=== PATIENT | male | born 1955 | race Caucasian/White ===

== ENCOUNTER 2020-10-08 14:05 | Inpatient (IN) ==
[2020-10-08 17:02] LABS: BASOPHILS # (AUTO) 0.1 X10^3/uL (0.0-0.1); BASOPHILS % (AUTO) 0.8 % (0.2-1.0); EOSINOPHILS % (AUTO) 9.1 % (0.9-2.9); HEMATOCRIT 27.2 % (42.0-54.0); HEMOGLOBIN 8.8 g/dL (13.5-18.0); LYMPHOCYTES # (AUTO) 1.4 X10^3/uL (1.3-2.9); LYMPHOCYTES % (AUTO) 13.1 % (21.0-51.0); MEAN CORPUSCULAR HGB CONC 32.4 g/dL (33.0-35.0); MEAN CORPUSCULAR VOLUME 77.1 fL (80.0-100.0); MEAN PLATELET VOLUME 7.1 fL (7.4-11.0); MONOCYTES # (AUTO) 0.8 x10^3/uL (0.3-0.8); MONOCYTES % (AUTO) 7.8 % (0.0-13.0); NEUTROPHILS # (AUTO) 7.4 x10^3/uL (2.2-4.8); NEUTROPHILS % (AUTO) 69.2 % (42.0-75.0); PLATELET COUNT 451 X10^3/uL (150.0-450.0); RED BLOOD COUNT 3.53 X10^6/uL (4.7-6.0); WHITE BLOOD COUNT 10.7 X10^3/uL (3.6-10.0)
[2020-10-08 17:14] LABS: ALBUMIN 2.5 g/dL (3.4-5.0); CALCIUM 8.7 mg/dL (8.5-10.1); CARBON DIOXIDE 28.8 mmol/L (21-32); COR CA(FOR HYPOALB) 9.9 mg/dL (8.5-10.1); CREATININE 2.31 mg/dL (0.70-1.30); TOTAL PROTEIN 8.2 g/dL (6.4-8.2)
[2020-10-08 17:26] VITALS: BMI 27.4
[2020-10-08] MEDS ORDERED: VENTOLIN or PROAIR HFA IN PRN (19:36)
[2020-10-08] MEDS ORDERED: PHARMACY CONSULT - VANCOMYCIN XX SCH (20:00)
[2020-10-08] MEDS ORDERED: ACCUNEB 1.25 MG NEBULE NEB PRN (20:15)
[2020-10-08] MEDS: COLACE CAP 100 MG PO SCH (20:29)
[2020-10-08] MEDS: ZOSYN VIAL 2.25 GRAMS 2.25 G in NS 100 ML IV + SPIKE MINIBAG* 100 ML IV SCH ×2 (20:29→21:06)
[2020-10-08] MEDS: HumuLIN R SC PRN (20:29)
[2020-10-08] MEDS: ULTRAM PO PRN (20:30)
[2020-10-08] MEDS: COREG TAB 12.5 MG PO SCH (20:30)
[2020-10-08] MEDS: CRESTOR TAB 10 MG PO SCH (20:30)
[2020-10-08] MEDS ORDERED: VANCOMYCIN HCL 750 MG VIAL 750 MG in D5W 250 ML IV 250 ML IV SCH (21:00)
--- NOTE | 2020-10-08 21:34 | DR.H&P ---
H&P History & Physical for Day of: H&P Date: 10/08/20 Chief Complaint Chief Complaint: 65-year-old male with history of diabetes, hypertension and congestive heart failure who was seen in [place] for a wound to the lateral aspect of the right metatarsal head. Has significant history of rest pain and short distance claudication and ultrasound duplex studies showed significant bilateral superficial femoral artery disease. He was discharged home to come here for vascular interventional care to assure healing of the wound. Plain films reported to be negative. Question of possible osteomyelitis of the metatarsal head of the right 5th toe. Past history of tobacco abuse and stopped smoking 6 years ago. Allergies Allergies Allergy/AdvReac Type Severity Reaction Status Date / Time codeine Allergy Verified 10/08/20 19:47 History of Present Illness History of Present Illness: See above Past Medical History Past Medical History: CHF and Diabetes Past Surgical History Surgical History: Other ( Hx of left inguinal hernia repair. ) Family History Family Medical History: Diabetes Mellitus, Cancer, DE and Hypertension Social History Does patient currently use any type of tobacco product: No Have you used tobacco products in the last 12 months: No Type of Tobacco Use: Cigarettes How many years tobacco product used: 30 Does any household member use tobacco: No Alcohol Use: None Drug Use: None Medications Home Medications: codeine Allergy (Verified 10/08/20 19:47) CONTINUE taking the following medications albuterol sulfate 2 puff INHALATION Q4H PRN 10/08/20 [History] aspirin 81 mg PO DAILY 10/08/20 [History] carvedilol 12.5 mg PO BID 10/08/20 [History] docusate sodium 100 mg PO DAILY 10/08/20 [History] ezetimibe 10 mg PO DAILY 10/08/20 [History] furosemide 40 mg PO DAILY 10/08/20 [History] rosuvastatin 20 mg PO QHS 10/08/20 [History] tramadol 50 mg PO Q6H PRN 10/08/20 [History] Labs Result Diagrams: 10/08/20 16:40 10/08/20 16:40 Labs: Laboratory WBC 10.7 X10^3/uL (3.6-10.0) H 10/08/20 16:40 RBC 3.53 X10^6/uL (4.7-6.0) L 10/08/20 16:40 Hgb 8.8 g/dL (13.5-18.0) L 10/08/20 16:40 Hct 27.2 % (42.0-54.0) L 10/08/20 16:40 MCV 77.1 fL (80.0-100.0) L 10/08/20 16:40 MCH 25.0 pg (27.0-34.0) L 10/08/20 16:40 MCHC 32.4 g/dL (33.0-35.0) L 10/08/20 16:40 RDW 16.0 % (11.6-16.5) 10/08/20 16:40 Plt Count 451 X10^3/uL (150.0-450.0) H 10/08/20 16:40 MPV 7.1 fL (7.4-11.0) L 10/08/20 16:40 Neut % (Auto) 69.2 % (42.0-75.0) 10/08/20 16:40 Lymph % (Auto) 13.1 % (21.0-51.0) L 10/08/20 16:40 [place] % (Auto) 7.8 % (0.0-13.0) 10/08/20 16:40 Eos % (Auto) 9.1 % (0.9-2.9) H 10/08/20 16:40 Baso % (Auto) 0.8 % (0.2-1.0) 10/08/20 16:40 Neut # (Auto) 7.4 x10^3/uL (2.2-4.8) H 10/08/20 16:40 Lymph # (Auto) 1.4 X10^3/uL (1.3-2.9) 10/08/20 16:40 [place] # (Auto) 0.8 x10^3/uL (0.3-0.8) 10/08/20 16:40 Eos # (Auto) 1.0 x10^3/uL (0.0-0.2) H 10/08/20 16:40 Baso # (Auto) 0.1 X10^3/uL (0.0-0.1) 10/08/20 16:40 Absolute Nucleated RBC 0.0 /100WBC 10/08/20 16:40 Sodium 141 mmol/L (136-145) 10/08/20 16:40 Corrected Sodium 142 mmol/L (136-145) 10/08/20 16:40 Potassium 3.7 mmol/L (3.5-5.1) 10/08/20 16:40 Chloride 104 mmol/L (98-107) 10/08/20 16:40 Carbon Dioxide 28.8 mmol/L (21-32) 10/08/20 16:40 BUN 38 mg/dL (7-18) H 10/08/20 16:40 Creatinine 2.31 mg/dL (0.70-1.30) H 10/08/20 16:40 Est GFR (MDRD) Af Amer 36 (>60) L 10/08/20 16:40 Est GFR (MDRD) Non-Af 30 (>60) L 10/08/20 16:40 Glucose 126 mg/dL (65-99) H 10/08/20 16:40 POC Glucose (mg/dL) 222 mg/dL (65-99) H 10/08/20 20:05 Calcium 8.7 mg/dL (8.5-10.1) 10/08/20 16:40 Corrected Calcium 9.9 mg/dL (8.5-10.1) 10/08/20 16:40 Total Bilirubin 0.30 mg/dL (0.2-1.0) 10/08/20 16:40 AST 56 Units/L (15-37) H 10/08/20 16:40 ALT 55 Units/L (12-78) 10/08/20 16:40 Alkaline Phosphatase 101 Units/L (46-116) 10/08/20 16:40 Total Protein 8.2 g/dL (6.4-8.2) 10/08/20 16:40 Albumin 2.5 g/dL (3.4-5.0) L 10/08/20 16:40 Globulin 5.7 g/dL (2.5-4.5) H 10/08/20 16:40 Albumin/Globulin Ratio 0.4 Ratio (1.1-2.1) L 10/08/20 16:40 SARS-CoV-2 (PCR) Negative (NEGATIVE) 10/08/20 14:36 Influenza Type A (PCR) Negative (NEGATIVE) 10/08/20 14:36 Influenza Type B (PCR) Negative (NEGATIVE) 10/08/20 14:36 RSV (PCR) Negative (NEGATIVE) 10/08/20 14:36 Review of Systems Constitutional: denies No Symptoms Reported, See HPI, Fever, Chills, Sweats, Weakness, Malaise and Other Eyes: No Symptoms Reported ENT: No Symptoms Reported Respiratory: No Symptoms Reported Cardiovascular: No Symptoms Reported Gastrointestinal: No Symptoms Reported Genitourinary: No Symptoms Reported Musculoskeletal: Other (open wound right lateral 5th metatarsal head s/p incision and drainage ) Neurological: No Symptoms Reported Physical Exam Vital Signs: Temperature 97.5 F Pulse Rate [Right Radial] 74 Respiratory Rate 18 Blood Pressure [Right Arm] 171/70 O2 Sat by Pulse Oximetry 97 Oriented: Time, Person and Place Eyes: Normal Ear: Normal Nose: Normal Throat: Normal Respiratory: Clear Throughout Cardiovascular: Normal and Other (Weakly palpable right femoral pulse. Left femoral pulse normal character. No distal pulses palpable either ankle.) : Normal Auscultation: Bowel Sounds: Normal Palpation: Normal Skin: Normal (exception is the open wound of the right lateral foot) Musculoskeletal: Normal Psychiatric: Normal Mood Description: Calm and Appropriate Assessment/Plan (1) Diabetes 1.5, managed as type 2: Narrative Support Text: Sliding scale insulin Status: Acute (2) Congestive heart failure: Narrative Support Text: continue home medications Status: Acute (3) Hypertension: Narrative Support Text: continue home medications Status: Acute (4) Rest pain of both lower extremities due to atherosclerosis: Narrative Support Text: PLan CT aortogram and b/l runoff. Will probably need peripheral intervention of the right leg to enable healing of the right foot wound but will probably also need intervention of the left leg to resolve rest pain Status: Acute (5) Abscess of right foot: Narrative Support Text: Continue IV antibiotics and wound care right foot Status: Acute
[2020-10-08] MEDS: VANCOMYCIN IV *PREMIX 750 mg/150 ML BAG 750 MG/150 ML PIGGYBACK IV SCH (22:44)
[2020-10-09] MEDS: ZOSYN VIAL 2.25 GRAMS 2.25 G in NS 100 ML IV + SPIKE MINIBAG* 100 ML IV SCH ×3 (05:26→21:40)
[2020-10-09] MEDS: COREG TAB 12.5 MG PO SCH ×2 (09:18→20:18)
[2020-10-09] MEDS: LOVENOX INJ 40 MG SYR SC SCH (09:18)
[2020-10-09] MEDS: ASPIRIN 81 MG CHEWTAB PO SCH (09:18)
[2020-10-09] MEDS: ZETIA TAB 10 MG PO SCH (09:18)
[2020-10-09] MEDS: ULTRAM PO PRN ×2 (09:27→17:39)
[2020-10-09] MEDS: HumuLIN R SC PRN (11:19)
--- NOTE | 2020-10-09 17:44 | NOTE.SOAP ---
Soap Note Note for Day of Date of Exam: 10/09/20 Subjective Data Subjective Data: No change Objective Data Temperature: 97.6 F Pulse Rate: 78 Respiratory Rate: 18 Blood Pressure: 145/66 O2 Sat by Pulse Oximetry: 96 Objective Data: no change, wound right lateral foot. Assessment Assessment: critical ischemia right leg with poorly healing wound. Plan Plan: Creatinine = 2.3. CT angiogram not done for the elevated creatinine. Will do on table arteriogram to try and limit dye load.
[2020-10-09] MEDS: VANCOMYCIN IV *PREMIX 750 mg/150 ML BAG 750 MG/150 ML PIGGYBACK IV SCH (20:17)
[2020-10-09] MEDS: COLACE CAP 100 MG PO SCH (20:18)
[2020-10-09] MEDS: CRESTOR TAB 10 MG PO SCH (20:20)
[2020-10-10] MEDS: ZOSYN VIAL 2.25 GRAMS 2.25 G in NS 100 ML IV + SPIKE MINIBAG* 100 ML IV SCH ×3 (05:39→22:13)
[2020-10-10] MEDS ORDERED: HEPARIN SODIUM IN D5W 75,000 UNITS/1,500 ML BAG ONE (06:58)
[2020-10-10] MEDS ORDERED: MARCAINE or SENSORCAINE 0.25% WITH EPI IJ ONE (06:58)
[2020-10-10] MEDS ORDERED: HEPARIN SODIUM INJ 5000 UNITS ONE (06:58)
[2020-10-10] MEDS ORDERED: NS 1000 ML 1,000 ML ONE (07:21)
[2020-10-10] MEDS ORDERED: FENTANYL VIAL INJ 100 mcg ONE (07:40)
[2020-10-10 07:48] LABS: ALANINE AMINOTRANSFERASE 42 Units/L (12-78); ALBUMIN 2.3 g/dL (3.4-5.0); ALKALINE PHOSPHATASE 82 Units/L (46-116); ASPARTATE AMINO TRANSFERASE 49 Units/L (15-37); BLOOD UREA NITROGEN 35 mg/dL (7-18); CALCIUM 8.9 mg/dL (8.5-10.1); CARBON DIOXIDE 27.1 mmol/L (21-32); CHLORIDE 107 mmol/L (98-107); COR CA(FOR HYPOALB) 10.3 mg/dL (8.5-10.1); SODIUM 142 mmol/L (136-145); TOTAL PROTEIN 7.4 g/dL (6.4-8.2); eGFR NON BLACK RACES 34 (>60)
[2020-10-10] MEDS ORDERED: DIPRIVAN VIAL ONE (07:50)
[2020-10-10] MEDS ORDERED: VERSED ONE (07:50)
[2020-10-10] MEDS ORDERED: EPHEDRINE SULFATE INJ ONE (07:50)
[2020-10-10] MEDS ORDERED: HEPARIN SODIUM IN D5W 25,000 UNITS/500 ML BAG ONE (09:45)
--- NOTE | 2020-10-10 11:01 | OR.IMMED ---
IMMEDIATE POST-OP NOTE Immediate Post-Op Note Pre-Op Diagnosis: critical limb ischemia right leg with open non-healing wound right foot Post-Op Diagnosis: same, severe stenosis both external iliac arteries left > right Procedure: Diagnostic aortogram, diagnostic arteriogram right lower extremity, bilateral external iliac stenting Description of Procedure: see operative Surgeon/Scrap Separator: Jadiel Findings: Very hard femoral and iliac vessels. My original plan was to shoot arteriogram down the right side and intervene of the right superficial from artery but he had significant disease of both extra iliac arteries. I ended up performing stenting of both external iliac arteries. Arteriogram of the right lower extremity shows small area of severe stenosis of the right superficial femoral artery with diffuse disease throughout this artery with one vessel runoff via the anterior tibial artery. Also with significant plaque of distal aorta. Specimens Removed: none Estimated Blood Loss: < 100 cc Drains: NONE Complications: none Progress Notes: Back to floor, continue IV antibiotics and dressing changes right foot. Condition: Stable Post Hospital Plans and Medications: see above . Will assess with ABIs and he will probably need B/Ll distal interventions in near future Final Diagnosis: Critical ischemia right leg , both legs
[2020-10-10] MEDS: NS 1000 ML 1,000 ML IV SCH ×3 (13:25→21:40)
[2020-10-10] MEDS: COREG TAB 12.5 MG PO SCH ×2 (14:36→20:47)
[2020-10-10] MEDS: LOVENOX INJ 40 MG SYR SC SCH (14:36)
[2020-10-10] MEDS: ASPIRIN 81 MG CHEWTAB PO SCH (14:36)
[2020-10-10] MEDS: ZETIA TAB 10 MG PO SCH (14:37)
[2020-10-10] MEDS: ULTRAM PO PRN ×2 (14:37→20:45)
--- NOTE | 2020-10-10 20:42 | NOTE.SOAP ---
Soap Note Note for Day of Date of Exam: 10/10/20 Subjective Data Subjective Data: Mr. Sterling is a 65 year old male who s/p vascular surgery today with Dr. Duvall. He is also s/p right partial 5th ray resection, DOS was 10/04. Patient recently admitted to [facility] for a right foot infection. The facility did not have a vascular doctor so he was sent here. Patient is doing well. He states he is a little tired. He denies any pain to the right foot. He denies any f/c/n/v/sob/calf pain. Objective Data Objective Data: * Right foot feels warm to touch. DP and PT pulses are not palpable. Skin is atrophic and xerotic. The lateral foot wound is with healthy skin edges. The wound base is Fibrotic. The 5th metatarsal bone is exposed. No purulence. No erythema. No edema noted. The fifth digit is viable. No duskiness noted. Assessment Assessment: Mr. Sterling is a 65 year old male with PAD, CKD, CHF and DM type 2. He had a revascularization procedure today. He has an open wound to the right lateral foot. No sign of infection but the wound base is fibrotic. The wound culture from [facility] grew MRSA and Klebsiella. The pathology report came back with OM of the metatarsal head. The margin that was resected is negative of OM. He is currently with VSS, NAD, and no leukocytosis. I discussed the case in length with Dr. Duvall. He plans to take him back to the OR for another procedure in the next week. Plan Plan: The right foot was dressed with 1/4 in iodoform. Wound vac to the right foot. To be changed M/W/F. He is to follow up with me next week. Patient will require another procedure for wound closure with possible rotation flap. Tentative plan for additional vascular procedure with delayed primary closure with possible flap on the 24 of October. Continue abx. I think he would benefit from an outpatient course of antibiotics. I defer WB to Dr. Duvall but from my stand point he can be WB with heel touch in a post op shoe. But because he is s/p vascular procedure I defer to Dr. Duvall. PT and OT evaluations prior to d/c. I am ok for discharge but I would like the patient to follow up at [facility] in [place] with either myself or Dr. Ha. Please do not hesitate to contact me with questions or concerns. Forest Currie [phone]
[2020-10-10] MEDS: COLACE CAP 100 MG PO SCH (20:47)
[2020-10-10] MEDS: CRESTOR TAB 10 MG PO SCH (20:47)
[2020-10-10] MEDS: VANCOMYCIN IV *PREMIX 750 mg/150 ML BAG 750 MG/150 ML PIGGYBACK IV SCH (20:47)
[2020-10-11] MEDS: ULTRAM PO PRN ×2 (02:59→09:00)
[2020-10-11] MEDS: NS 1000 ML 1,000 ML IV SCH (03:07)
[2020-10-11] MEDS: ZOSYN VIAL 2.25 GRAMS 2.25 G in NS 100 ML IV + SPIKE MINIBAG* 100 ML IV SCH (05:12)
[2020-10-11 06:40] LABS: ALBUMIN 1.9 g/dL (3.4-5.0); CALCIUM 7.9 mg/dL (8.5-10.1); CARBON DIOXIDE 20.6 mmol/L (21-32); COR CA(FOR HYPOALB) 9.6 mg/dL (8.5-10.1); CREATININE 2.1 mg/dL (0.70-1.30)
--- NOTE | 2020-10-11 08:19 | PCM.DCPLAN ---
DISCHARGE SUMMARY Admission Date Date of Admission: 10/08/20 Discharge Date Discharge Date: 10/11/20 Admission Diagnoses (1) Diabetes 1.5, managed as type 2: Status: Acute (2) Congestive heart failure: Status: Acute (3) Hypertension: Status: Acute (4) Rest pain of both lower extremities due to atherosclerosis: Status: Acute (5) Abscess of right foot: Status: Acute (6) Critical lower limb ischemia: Status: Acute Discharge Diagnoses Discharge Diagnosis: same Discharge Medications Discharge Medications: Home Medication List albuterol sulfate 2 puff INHALATION Q4H PRN 10/08/20 [History] aspirin 81 mg PO DAILY 10/08/20 [History] carvedilol 12.5 mg PO BID 10/08/20 [History] docusate sodium 100 mg PO DAILY 10/08/20 [History] ezetimibe 10 mg PO DAILY 10/08/20 [History] furosemide 40 mg PO DAILY 10/08/20 [History] rosuvastatin 20 mg PO QHS 10/08/20 [History] tramadol 50 mg PO Q6H PRN 10/08/20 [History] doxycycline monohydrate 100 mg PO BID #30 cap 10/11/20 [Rx] oxycodone-acetaminophen [Percocet] 1 tab PO Q6H PRN #30 tab MDD 6 10/11/20 [Rx] Prescriptions: doxycycline monohydrate Ashvin Duvall oxycodone-acetaminophen [Percocet] Ashvin Duvall Hospital Course Vital Signs: Temperature 97.6 F Pulse Rate [Right Radial] 69 Pulse Rate 84 Respiratory Rate 17 Blood Pressure [Right Arm] 134/61 Blood Pressure 165/79 O2 Sat by Pulse Oximetry 96 Latest Lab Results: Laboratory Last Values WBC 10.7 X10^3/uL (3.6-10.0) H 10/08/20 16:40 RBC 3.53 X10^6/uL (4.7-6.0) L 10/08/20 16:40 Hgb 8.8 g/dL (13.5-18.0) L 10/08/20 16:40 Hct 27.2 % (42.0-54.0) L 10/08/20 16:40 MCV 77.1 fL (80.0-100.0) L 10/08/20 16:40 MCH 25.0 pg (27.0-34.0) L 10/08/20 16:40 MCHC 32.4 g/dL (33.0-35.0) L 10/08/20 16:40 RDW 16.0 % (11.6-16.5) 10/08/20 16:40 Plt Count 451 X10^3/uL (150.0-450.0) H 10/08/20 16:40 MPV 7.1 fL (7.4-11.0) L 10/08/20 16:40 Neut % (Auto) 69.2 % (42.0-75.0) 10/08/20 16:40 Lymph % (Auto) 13.1 % (21.0-51.0) L 10/08/20 16:40 [place] % (Auto) 7.8 % (0.0-13.0) 10/08/20 16:40 Eos % (Auto) 9.1 % (0.9-2.9) H 10/08/20 16:40 Baso % (Auto) 0.8 % (0.2-1.0) 10/08/20 16:40 Neut # (Auto) 7.4 x10^3/uL (2.2-4.8) H 10/08/20 16:40 Lymph # (Auto) 1.4 X10^3/uL (1.3-2.9) 10/08/20 16:40 [place] # (Auto) 0.8 x10^3/uL (0.3-0.8) 10/08/20 16:40 Eos # (Auto) 1.0 x10^3/uL (0.0-0.2) H 10/08/20 16:40 Baso # (Auto) 0.1 X10^3/uL (0.0-0.1) 10/08/20 16:40 Absolute Nucleated RBC 0.0 /100WBC 10/08/20 16:40 Sodium 143 mmol/L (136-145) 10/11/20 06:06 Corrected Sodium 144 mmol/L (136-145) 10/11/20 06:06 Potassium 4.4 mmol/L (3.5-5.1) 10/11/20 06:06 Chloride 109 mmol/L (98-107) H 10/11/20 06:06 Carbon Dioxide 20.6 mmol/L (21-32) L 10/11/20 06:06 BUN 35 mg/dL (7-18) H 10/11/20 06:06 Creatinine 2.10 mg/dL (0.70-1.30) H 10/11/20 06:06 Est GFR (MDRD) Af Amer 41 (>60) L 10/11/20 06:06 Est GFR (MDRD) Non-Af 34 (>60) L 10/11/20 06:06 Glucose 132 mg/dL (65-99) H 10/11/20 06:06 POC Glucose (mg/dL) 134 mg/dL (65-99) H 10/11/20 05:41 Calcium 7.9 mg/dL (8.5-10.1) L 10/11/20 06:06 Corrected Calcium 9.6 mg/dL (8.5-10.1) 10/11/20 06:06 Total Bilirubin 0.40 mg/dL (0.2-1.0) 10/11/20 06:06 AST 38 Units/L (15-37) H 10/11/20 06:06 ALT 37 Units/L (12-78) 10/11/20 06:06 Alkaline Phosphatase 64 Units/L (46-116) 10/11/20 06:06 Total Protein 6.0 g/dL (6.4-8.2) L 10/11/20 06:06 Albumin 1.9 g/dL (3.4-5.0) L 10/11/20 06:06 Globulin 4.1 g/dL (2.5-4.5) 10/11/20 06:06 Albumin/Globulin Ratio 0.5 Ratio (1.1-2.1) L 10/11/20 06:06 SARS-CoV-2 (PCR) Negative (NEGATIVE) 10/08/20 14:36 Influenza Type A (PCR) Negative (NEGATIVE) 10/08/20 14:36 Influenza Type B (PCR) Negative (NEGATIVE) 10/08/20 14:36 RSV (PCR) Negative (NEGATIVE) 10/08/20 14:36 Hospital Course: 65-year-old male who had presented to the hospital in [place] with an abscess to the right foot lateral to the right metatarsal head. He has significant history of diabetes. He underwent incision and drainage of this and treatment with IV antibiotics. Studies were consistent with ischemia of both lower extremities suggesting possible bilateral superficial femoral artery disease of significance. He was discharged from there to be admitted to the hospital in [facility] so I could address the arterial insufficiency of his right leg first in order to get this wound healed. He had an MRI of the right foot suggesting osteomyelitis of the metatarsal head and proximal end of the proximal phalanx of the right 5th digit of the foot. His creatinine level was 2.3and elected not to do CT angiogram and perform on table studies to try and limit the amount of dye exposure. He was taken to the operating suite on October 10, 2020, yesterday ,and underwent an table arteriogram showing severe stenosis of the right external iliac artery as well as significant stenosis of the left external iliac artery. Arteriogram was obtained of the right extremity showing diffuse disease of the right superficial femoral artery with one area of stenosis in the distal 3rd of the vessel as well as one vessel runoff via the right anterior tibial artery. He underwent bilateral external iliac artery stenting. A wound vacuum was placed over the right foot wound. This should increase inflow to allow healing. He will need furthers intervention done on both lower extremities.. He is to be discharged today on PO doxycyline 500 mg b.i.d. as well as his usual medications and Percocet 5 mg tablets one every 6 hours PRN pain , #30. He will come back to the operating room on 24 October for peripheral vascular intervention of the right lower extremity and at that time Podiatry will address the osteomyelitis of the right 5th toe metatarsal head and proximal phalanx. His creatinine at discharge is improved at 2.1. Instructions Instructions: Diabetes Mellitus and Sick Day Management Wound Infection, Edyi-vz-Albs Heart Failure Action Plan Negative Pressure Wound Therapy Dressing Care Hypertension, [id number] Forms: Excuse From Work or School Precautions for COVID19 Patient Portal Social Distancing
[2020-10-11] MEDS ORDERED: KETALAR ONE (08:58)
[2020-10-11] MEDS: COREG TAB 12.5 MG PO SCH (09:00)
[2020-10-11] MEDS: ASPIRIN 81 MG CHEWTAB PO SCH (09:00)
[2020-10-11] MEDS: ZETIA TAB 10 MG PO SCH (09:01)
[2020-10-11] MEDS: LOVENOX INJ 40 MG SYR SC SCH (09:22)
[2020-10-11 10:58] VITALS: BP 132/61
--- NOTE | 2020-10-11 14:31 | DR.OPNOTE ---
OP NOTE Pre-Op Diagnosis: Critical limb threatening ischemia and non -healing wound right foot Post-Op Diagnosis: Same , severe stenosis of both external iliac arteries Procedure Date Date Of Procedure: 10/10/20 Procedure: The patient was taken to the operating suite and placed in the supine position. He was given IV sedation. The sedation was supervised by myself. Timeout for the procedure obtained. Ultrasonography used to identify the left common femoral artery and the skin overlying the artery infiltrated with 0.5% Marcaine with epinephrine. Micro puncture needle used to puncture the common femoral artery on the left side using ultrasound guidance. The patient had exceptionally hard, calcified arteries . Small 0.014 inch wire placed and incision made over the guidewire at the skin level and a micro sheath placed over the wire into the left common from artery. The small wire exchanged for a 0.035 inch Advantage guidewire and the micro sheath exchanged for a 5 [place] short sheath. Patient was given 5000 units of intravenous heparin. Heparin was repeated at one hour using an additional 3000 units. Omni catheter threaded over the guidewire and diagnostic aortogram carried out. I was concerned about the orientation of the guidewire and it was removed. Aortogram did show severe stenosis of the right external iliac artery near the junction with the internal iliac artery on the right . There was good blood return through the sheath i tself but there was a question of possible subintimal dissection therefore I elected to place a sheath on the right side. Ultrasonography used to identify the right common femoral artery and the skin overlying it infiltrated with 0.5 % Marcaine with epinephrine. Ultrasound used to guide puncture of the right common femoral artery and a 0.014 inch wire placed. Incision made over the guidewire at the skin level and a micro sheath placed over this into the right common femoral artery. The small wire exchanged for a 0.035 inch Advantage guidewire but I could not get the guidewire through the severe stenosis of the right external iliac artery. The micro sheath exchanged for a short vascular sheath. Under fluoroscopic guidance a 0.018 inch wire was placed across the severe right external iliac artery stenosis . Trailblazer catheter placed over the 0.018 inch wire into the aorta and this wire exchanged for a 0.035 inch Advantage guidewire Omni catheter placed over the wire and diagnostic aortogram carried out showing severe stenosis of the right external iliac artery near the junction with the internal iliac artery. There was also severe stenosis of the left external iliac artery. Omni catheter used to guide the 0.035 inch wire into the left common iliac artery and down to the left femoral artery. Short vascular sheath exchanged for a 7 [place] destination sheath and was placed over the wire into the left common femoral artery. A 7 mm x 80 mm [employer] Noa drug-coated balloon was placed through the destination sheath and positioned in the external iliac artery where it was planned to be deployed and the sheath pulled back exposing the stent and the stent deployed by inflating it. The area of severe stenosis of the right external iliac artery was measured with the 80 mm balloon and it appeared that we had appropriate stents to place across this area of stenosis We placed both z 7 mm x 57 mm and a 7 x 37 mm [employer] expandable stent across the stenosis on the right side with appropriate overlap and then ballooned them open with a 6 mm x 80 mm balloon in sequence. Post procedure arteriogram showed excellent dilatation of both external iliac arteries. Patient was given 30 mg of IV protamine. The destination sheath was pulled back into the aorta and it exchanged over the wire an Angioseal device and used to close the right common femoral artery puncture. The sheath in the left groin was removed and direct pressure held on this side. The patient had continued bleeding and required an additional 20 mg of protamine. The bleeding from the left groin puncture site was reinforced with a vertical mattress suture of 3-0 nylon. The patient was taken to the medical/ surgical floor as there was no active bleeding and the patient tolerated this well. Type of Anesthesia: Local (10cc 0.5% Marcaine with epinephrine) Anesthesia Comment: MAC Findings: Severe stenosis both external iliac arteries , significant stenosis of right superficial femoral artery and one vessel runoff via the right anterior tibial artery. Very hard, calcified vessels. Specimen/Pathology: none Type of Fluids Used:: Normal Saline Total Amount of Fluid Infused:: 600 cc Urine output: 200 cc EBL: < 100 cc Drains/Tubes Placed: None Hardware: B/l external iliac stents Complications:: none Needle/Sponge Count:: correct Disposition/Condition: * Pt. tolerated procedure without difficulty. Taken to floor in stable condition.
[2020-10-11] MEDS ORDERED: PHARMACY COMMENT IV NR (20:30)
== END 2020-10-11 13:05 | disposition home health service (06) | DRG 629 ==
LOC: MED/SURG 14:22
PROVIDERS: ADMIT Surgery; ATTEND Surgery
DX: E11.51 Type 2 diabetes mellitus with diabetic peripheral angiopathy without gangrene; E11.621 Type 2 diabetes mellitus with foot ulcer; I10 Essential (primary) hypertension; I70.223 Atherosclerosis of native arteries of extremities with rest pain, bilateral legs; Z20.822 Contact with and (suspected) exposure to COVID-19; L02.611 Cutaneous abscess of right foot; E11.65 Type 2 diabetes mellitus with hyperglycemia